=== PATIENT | male | born 1940 | race Caucasian/White ===

== ENCOUNTER → 2016-10-09 | Outpatient (CLI) | payer MEDICARE ==
[~2016-10-09] MED LIST: ALLO300T; AMLO10TA2; BENA40TA2; GABA300C10; METO25TA91; NABU750T; OMNIPAQUE 350 MG/ML, 100ML BOTTLE ONE; TIZA4CAP
== END | disposition home or self-care (01) ==
LOC: CFH 08:22
PROVIDERS: ATTEND Internal Medicine Cardiovascular Disease
DX: J84.10 Pulmonary fibrosis, unspecified (principal); K80.80 Other cholelithiasis without obstruction; I25.10 Atherosclerotic heart disease of native coronary artery without angina pectoris; M47.894 Other spondylosis, thoracic region; D73.4 Cyst of spleen; I08.3 Combined rheumatic disorders of mitral, aortic and tricuspid valves; I37.1 Nonrheumatic pulmonary valve insufficiency
CPT/HCPCS: 71275; 93306; Q9967

== ENCOUNTER → 2017-07-06 | Outpatient (CLI) | payer MEDICARE ==
[~2017-07-06] MED LIST changes: -OMNIPAQUE 350 MG/ML, 100ML BOTTLE ONE; +REGADENOSON 0.4 MG/5 ML SYRINGE ONE
== END | disposition home or self-care (01) ==
LOC: CFH 07:58
PROVIDERS: ATTEND Internal Medicine Cardiovascular Disease
DX: Z01.810 Encounter for preprocedural cardiovascular examination (principal); I11.9 Hypertensive heart disease without heart failure; I25.89 Other forms of chronic ischemic heart disease
CPT/HCPCS: 78452; 93017; A9502; J2785

== ENCOUNTER → 2017-07-28 | Outpatient (CLI) | payer MEDICARE ==
[~2017-07-28] MED LIST changes: -ALLO300T; +ALLO300T PO; +BENA10TA2 PO; +BENA20TA2 PO; -GABA300C10; +GABA300C10 PO; -METO25TA91; +METO25TA91 PO; -REGADENOSON 0.4 MG/5 ML SYRINGE ONE
[2017-07-28 11:43] LABS: BASOPHILS # (AUTO) 0.04 x10^3/uL (0-0.1); BASOPHILS % (AUTO) 1 % (0-1); EOSINOPHILS # (AUTO) 0.36 x10^3/uL (0-0.4); EOSINOPHILS % (AUTO) 5 % (1-7); LYMPHOCYTES % (AUTO) 34 % (22-44); MD NO; MEAN CORPUSCULAR HEMOGLOBIN 35.1 pg (27.5-34.5); MEAN CORPUSCULAR HGB CONC 34.6 g/dL (33.2-36.2); MEAN CORPUSCULAR VOLUME 101.4 fL (81-97); MEAN PLATELET VOLUME 6.6 fL (7.4-10.4); MONOCYTES # (AUTO) 0.67 x10^3/uL (0.2-0.8); MONOCYTES % (AUTO) 9 % (2-9); NEUTROPHILS # (AUTO) 3.73 x10^3/uL (1.8-6.8); NEUTROPHILS % (AUTO) 51 % (42-75); PLATELET COUNT 140 x10^3/uL (130-400); RED BLOOD COUNT 5.06 x10^6/uL (4.38-5.82); RED CELL DISTRIBUTION WIDTH 13.4 % (9.4-14.8)
[2017-07-28 11:55] LABS: ALBUMIN 3.8 g/dL (3.4-5.0); CHLORIDE 105 mmol/L (98-107)
[2017-07-28 12:01] LABS: ALANINE AMINOTRANSFERASE 69 U/L (12-78); ALKALINE PHOSPHATASE 67 U/L (45-117); ANION GAP 9 mmol/L (5-15); CREATININE 0.92 mg/dL (0.7-1.3); TOTAL PROTEIN 7.4 g/dL (6.4-8.2)
== END | disposition home or self-care (01) ==
LOC: STAR 10:45
PROVIDERS: ATTEND Orthopaedic Surgery
DX: Z01.818 Encounter for other preprocedural examination (principal); M16.12 Unilateral primary osteoarthritis, left hip; R94.31 Abnormal electrocardiogram [ECG] [EKG]
CPT/HCPCS: 36415; 80053; 85025; 93005

== ENCOUNTER 2018-01-31 02:27 | Inpatient (IN) | payer MEDICARE ==
[~2018-01-31] VITALS: Ht 182.9 cm; Wt 92.5 kg
[~2018-01-31 02:27] MED LIST changes: +ASPI-496 PO; -BENA10TA2 PO; +BENA10TA4 PO; -BENA20TA2 PO; +BENA20TA4 PO; -BENA40TA2; +BENA40TA3; +TRAM50TA2 PO
[2018-01-31] MEDS ORDERED: CYAN-10 PO (02:46)
[2018-01-31] MEDS ORDERED: CHOL100012 PO (02:46)
[2018-01-31 02:53] LABS: BASOPHILS # (AUTO) 0.02 x10^3/uL (0-0.1); BASOPHILS % (AUTO) 0 % (0-1); EOSINOPHILS % (AUTO) 6 % (1-7); LYMPHOCYTES % (AUTO) 30 % (22-44); MD NO; MEAN CORPUSCULAR HEMOGLOBIN 36.6 pg (27.5-34.5); MEAN CORPUSCULAR HGB CONC 34.9 g/dL (33.2-36.2); MEAN CORPUSCULAR VOLUME 104.8 fL (81-97); MEAN PLATELET VOLUME 7.2 fL (7.4-10.4); MONOCYTES # (AUTO) 0.42 x10^3/uL (0.2-0.8); MONOCYTES % (AUTO) 8 % (2-9); NEUTROPHILS # (AUTO) 2.74 x10^3/uL (1.8-6.8); NEUTROPHILS % (AUTO) 55 % (42-75); PLATELET COUNT 106 x10^3/uL (130-400); RED BLOOD COUNT 4.45 x10^6/uL (4.38-5.82); RED CELL DISTRIBUTION WIDTH 14.4 % (9.4-14.8)
[2018-01-31 03:02] LABS: ALANINE AMINOTRANSFERASE 32 U/L (12-78); ALBUMIN 3.4 g/dL (3.4-5.0); ANION GAP 9 mmol/L (5-15); CALCIUM 9.2 mg/dL (8.5-10.1); CHLORIDE 106 mmol/L (98-107); CREATININE 1.21 mg/dL (0.7-1.3)
[2018-01-31 03:06] LABS: ALKALINE PHOSPHATASE 68 U/L (45-117); BILIRUBIN,TOTAL 0.5 mg/dL (0.2-1.0); TOTAL PROTEIN 6.3 g/dL (6.4-8.2)
[2018-01-31 03:09] LABS: TROPONIN I 0.366 ng/mL (0.000-0.045)
[2018-01-31 03:54] VITALS: BP 167/92
[2018-01-31] MEDS ORDERED: POLYETHYLENE GLYCOL 17 GM PACKET PO PRN (04:30)
[2018-01-31] MEDS ORDERED: ONDANSETRON ODT 4 MG PO PRN (04:30)
[2018-01-31] MEDS ORDERED: HEPARIN 25,000 UNITS/500ML PMX 500 ML IV PRN (05:00)
[2018-01-31] MEDS ORDERED: HEPARIN 5,000 UNITS/ML, 1ML IV PRN (05:00)
[2018-01-31] MEDS ORDERED: HEPARIN 5,000 UNITS/ML, 1ML IV ONE (05:00)
[2018-01-31] MEDS: SODIUM CHLORIDE 0.9% 1,000 ML IV SCH ×2 (05:47→18:25)
[2018-01-31 06:30] VITALS: BP 108/88
[2018-01-31] MEDS: SENNA/DOCUSATE TABLET PO SCH (09:00)
[2018-01-31] MEDS: BENAZEPRIL 20 MG TABLET PO SCH (09:00)
[2018-01-31] MEDS ORDERED: BENAZEPRIL 10 MG TABLET ONE (09:23)
[2018-01-31] MEDS: ATORVASTATIN 80 MG TABLET PO SCH (09:26)
[2018-01-31] MEDS: GABAPENTIN 300 MG CAPSULE PO SCH ×3 (09:26→22:12)
[2018-01-31] MEDS: ALLOPURINOL 300 MG TABLET PO SCH (09:26)
[2018-01-31 13:08] VITALS: BP 165/71
[2018-01-31] MEDS ORDERED: FENTANYL PF 100 MCG/2ML ONE (14:31)
[2018-01-31] MEDS ORDERED: MIDAZOLAM 1 MG/ML, 5ML ONE (14:31)
[2018-01-31] MEDS ORDERED: TICAGRELOR 90 MG TABLET ONE (14:31)
[2018-01-31] MEDS ORDERED: HEPARIN 1,000 UNITS/ML, 10ML ONE (14:31)
[2018-01-31] MEDS ORDERED: VERAPAMIL 2.5 MG/ML, 2ML ONE (14:31)
[2018-01-31] MEDS ORDERED: BIVALIRUDIN 250 MG ONE (14:31)
[2018-01-31] MEDS ORDERED: LIDOCAINE-MPF 2% ,5ML ONE (14:31)
[2018-01-31] MEDS ORDERED: CHLORHEXIDINE 15 ML BOTTLE MM PRN (17:00)
[2018-01-31] MEDS ORDERED: METOPROLOL TARTRATE 25 MG TABLET PO ONE (17:00)
[2018-01-31] MEDS ORDERED: INSULIN LISPRO 100 UNITS/ML, PEN SQ-INSULIN SCH (17:00)
[2018-01-31 18:33] LABS: BASOPHILS # (AUTO) 0.05 x10^3/uL (0-0.1); BASOPHILS % (AUTO) 1 % (0-1); EOSINOPHILS # (AUTO) 0.21 x10^3/uL (0-0.4); EOSINOPHILS % (AUTO) 3 % (1-7); LYMPHOCYTES # (AUTO) 1.97 x10^3/uL (1-3.4); LYMPHOCYTES % (AUTO) 27 % (22-44); MD NO; MEAN CORPUSCULAR HEMOGLOBIN 36.6 pg (27.5-34.5); MEAN CORPUSCULAR HGB CONC 34.9 g/dL (33.2-36.2); MEAN CORPUSCULAR VOLUME 104.8 fL (81-97); MEAN PLATELET VOLUME 7.3 fL (7.4-10.4); MONOCYTES # (AUTO) 0.51 x10^3/uL (0.2-0.8); MONOCYTES % (AUTO) 7 % (2-9); NEUTROPHILS # (AUTO) 4.71 x10^3/uL (1.8-6.8); NEUTROPHILS % (AUTO) 63 % (42-75); PLATELET COUNT 113 x10^3/uL (130-400); RED BLOOD COUNT 4.68 x10^6/uL (4.38-5.82); RED CELL DISTRIBUTION WIDTH 14.6 % (9.4-14.8)
[2018-01-31 18:42] LABS: ALANINE AMINOTRANSFERASE 29 U/L (12-78); ALBUMIN 3.4 g/dL (3.4-5.0); ANION GAP 7 mmol/L (5-15); CALCIUM 8.9 mg/dL (8.5-10.1); CHLORIDE 109 mmol/L (98-107)
[2018-01-31 18:45] LABS: ALKALINE PHOSPHATASE 63 U/L (45-117); BILIRUBIN,TOTAL 1.1 mg/dL (0.2-1.0); INTERNATIONAL NORMALIZED RATIO 1.1 (0.93-1.1); PROTHROMBIN TIME 11.4 Seconds (9.6-11.5); TOTAL PROTEIN 6.3 g/dL (6.4-8.2)
[2018-01-31 18:45] LABS: MICROSCOPIC AUTO
[2018-01-31 18:54] LABS: HEMOGLOBIN A1C 4.8 % (4.2-6.3)
[2018-01-31 18:55] VITALS: BP 149/81
[2018-01-31] MEDS ORDERED: BENAZEPRIL 10 MG TABLET PO SCH (21:00)
[2018-01-31] MEDS: ASPIRIN 81 MG TABLET CHEW PO SCH (21:00)
[2018-01-31 22:11] VITALS: BP 148/73
[2018-01-31] MEDS: MUPIROCIN OINT 2%, 22GM TP SCH (22:13)
[2018-01-31] MEDS: SODIUM CHLORIDE FLUSH 10ML SYR IVF SCH (22:15)
[2018-02-01 00:09] VITALS: BP 160/79
[2018-02-01 03:05] LABS: CHOL/HDL RATIO 2.4; LDL/HDL RATIO 0.9 (0.5-3.0)
[2018-02-01 04:56] VITALS: BP_SYST 164; BP_SYST 167; BP_DIAS 72; BP_DIAS 74
[2018-02-01] MEDS ORDERED: METOPROLOL TARTRATE 25 MG TABLET PO SCH (05:00)
[2018-02-01 06:20] VITALS: BP 132/71
[2018-02-01] MEDS ORDERED: VANCOMYCIN 1,300 MG in SODIUM CHLORIDE 0.9% 250 ML IVPB PRN (07:30)
[2018-02-01] MEDS: GABAPENTIN 300 MG CAPSULE PO SCH ×3 (08:20→21:00)
[2018-02-01] MEDS: ALLOPURINOL 300 MG TABLET PO SCH (08:21)
[2018-02-01] MEDS: SENNA/DOCUSATE TABLET PO SCH (08:21)
[2018-02-01] MEDS ORDERED: BENAZEPRIL 10 MG TABLET ONE (08:22)
[2018-02-01] MEDS: ATORVASTATIN 80 MG TABLET PO SCH (08:29)
[2018-02-01] MEDS: SODIUM CHLORIDE FLUSH 10ML SYR IVF SCH ×3 (08:31→21:23)
[2018-02-01] MEDS: BENAZEPRIL 20 MG TABLET PO SCH (08:31)
[2018-02-01] MEDS: MUPIROCIN OINT 2%, 22GM TP SCH ×2 (08:33→21:00)
[2018-02-01] MEDS: SODIUM CHLORIDE 0.9% 1,000 ML IV SCH ×2 (08:33→22:20)
[2018-02-01] MEDS ORDERED: FENTANYL PF 250 MCG/5ML ONE ×4 (08:58→08:59)
[2018-02-01] MEDS ORDERED: MIDAZOLAM 10MG/2 ML ONE (08:58)
[2018-02-01] MEDS: DOCUSATE 100 MG CAPSULE PO SCH ×2 (09:00→21:00)
[2018-02-01 09:23] LABS: BASOPHILS # (AUTO) 0.01 x10^3/uL (0-0.1); BASOPHILS % (AUTO) 0 % (0-1); EOSINOPHILS # (AUTO) 0.15 x10^3/uL (0-0.4); EOSINOPHILS % (AUTO) 3 % (1-7); LYMPHOCYTES # (AUTO) 1.25 x10^3/uL (1-3.4); LYMPHOCYTES % (AUTO) 22 % (22-44); MD NO; MEAN CORPUSCULAR HEMOGLOBIN 35.8 pg (27.5-34.5); MEAN CORPUSCULAR HGB CONC 34.1 g/dL (33.2-36.2); MEAN PLATELET VOLUME 7.1 fL (7.4-10.4); MONOCYTES # (AUTO) 0.58 x10^3/uL (0.2-0.8); MONOCYTES % (AUTO) 10 % (2-9); NEUTROPHILS # (AUTO) 3.68 x10^3/uL (1.8-6.8); NEUTROPHILS % (AUTO) 65 % (42-75); PLATELET COUNT 110 x10^3/uL (130-400); RED BLOOD COUNT 4.37 x10^6/uL (4.38-5.82); RED CELL DISTRIBUTION WIDTH 14.5 % (9.4-14.8)
[2018-02-01 09:33] LABS: ANION GAP 7 mmol/L (5-15); CALCIUM 8.5 mg/dL (8.5-10.1); CHLORIDE 112 mmol/L (98-107)
[2018-02-01 09:35] LABS: CREATININE 0.94 mg/dL (0.7-1.3)
[2018-02-01 09:41] VITALS: BP 160/74
[2018-02-01] MEDS: METOPROLOL SUCCINATE 25 MG TAB.ER.24H PO SCH ×2 (09:46→21:00)
[2018-02-01] MEDS ORDERED: ALBUMIN HUMAN 5% 500 ML IV PRN (11:00)
[2018-02-01] MEDS ORDERED: EPINEPHRINE 2 MG in SODIUM CHLORIDE 0.9% 248 ML IV SCH ×2 (11:00→11:30)
[2018-02-01] MEDS ORDERED: CEFUROXIME 1.5 GM in SODIUM CHLORIDE 0.9% 50 ML IVPB PRN (11:00)
[2018-02-01] MEDS ORDERED: DEXMEDETOMIDINE 200 MCG in SODIUM CHLORIDE 0.9% 48 ML IV SCH (11:00)
[2018-02-01] MEDS ORDERED: PHENYLEPHRINE 10 MG in SODIUM CHLORIDE 0.9% 249 ML IV PRN ×2 (11:00→14:34)
[2018-02-01] MEDS ORDERED: REGULAR INSULIN 62.5 UNITS in SODIUM CHLORIDE 0.9% 249.375 ML IV PRN ×2 (11:00→14:34)
[2018-02-01] MEDS ORDERED: MANNITOL PMX 20% 500 ML IVPB PRN (11:00)
[2018-02-01] MEDS ORDERED: VANCOMYCIN 1,400 MG in SODIUM CHLORIDE 0.9% 250 ML IV PRN (11:00)
[2018-02-01] MEDS ORDERED: POTASSIUM CHLORIDE 80 MEQ, SODIUM BICARBONATE 8.4% 10 MEQ, MAGNESIUM SULFATE 0.5 GM, LI... IV PRN (11:00)
[2018-02-01] MEDS ORDERED: PAPAVERINE 30 MG/ML, 2ML ONE (11:12)
[2018-02-01] MEDS ORDERED: HEPARIN 1,000 UNITS/ML, 10ML ONE (11:13)
[2018-02-01] MEDS ORDERED: PROPOFOL 10 MG/ML, 20ML ONE (12:36)
[2018-02-01] MEDS ORDERED: ROCURONIUM 10MG/ML,5ML ONE (12:37)
[2018-02-01] MEDS ORDERED: HEPARIN 1,000 UNITS/ML, 10ML IV ONE (13:04)
[2018-02-01] MEDS ORDERED: PAPAVERINE 30 MG/ML, 2ML IV ONE (13:05)
[2018-02-01] MEDS ORDERED: PROTAMINE SULFATE 10 MG/ML, 25ML ONE ×2 (13:41)
[2018-02-01] MEDS ORDERED: DEXMEDETOMIDINE 200 MCG in SODIUM CHLORIDE 0.9% 48 ML IV PRN (14:34)
[2018-02-01] MEDS ORDERED: DOBUTAMINE 250 MG in SODIUM CHLORIDE 0.9% 230 ML IV PRN (14:34)
[2018-02-01] MEDS ORDERED: VASOPRESSIN 50 UNIT in SODIUM CHLORIDE 0.9% 247.5 ML IV PRN (14:34)
[2018-02-01] MEDS ORDERED: NITROGLYCERIN/D5W PMX 250 ML IV PRN (14:34)
[2018-02-01] MEDS ORDERED: SODIUM CHLORIDE 0.9% 1,000 ML IV PRN (14:34)
[2018-02-01] MEDS ORDERED: OXYcodone IR 5MG TABLET PO PRN (15:00)
[2018-02-01] MEDS ORDERED: MIDAZOLAM 1 MG/ML, 5ML IVPush PRN (15:00)
[2018-02-01] MEDS ORDERED: INSULIN REGULAR 100 UNITS/ML, 3ML VIAL IVPush PRN (15:00)
[2018-02-01] MEDS ORDERED: ACETAMINOPHEN 325 MG TABLET PO PRN (15:00)
[2018-02-01] MEDS ORDERED: SODIUM BICARB 8.4%, 50ML SYRINGE IV PRN (15:00)
[2018-02-01] MEDS ORDERED: BISACODYL 10 MG SUPP PR PRN (15:00)
[2018-02-01] MEDS ORDERED: PROCHLORPERAZINE 5 MG/ML, 2ML IVPush PRN (15:00)
[2018-02-01] MEDS ORDERED: BISACODYL 5 MG EC TABLET PO PRN (15:00)
[2018-02-01] MEDS ORDERED: DEXTROSE 4 GM TAB.CHEW PO PRN (15:00)
[2018-02-01] MEDS ORDERED: ACETAMINOPHEN 650 MG SUPP PR PRN (15:00)
[2018-02-01] MEDS ORDERED: EPINEPHRINE 2 MG in SODIUM CHLORIDE 0.9% 248 ML IV PRN (15:00)
[2018-02-01] MEDS ORDERED: LACTATED RINGERS 1,000 ML IV PRN (15:00)
[2018-02-01] MEDS ORDERED: DEXTROSE 50%, 50ML SYRINGE IVPush PRN (15:00)
[2018-02-01] MEDS ORDERED: MAGNESIUM SULFATE 1 GM in SODIUM CHLORIDE 0.9% 50 ML IVPB SCH (15:00)
[2018-02-01] MEDS: KSCALE TO 4.5 IV SCH ×2 (15:00→21:00)
[2018-02-01] MEDS ORDERED: GLUCAGON 1 MG IM PRN (15:00)
[2018-02-01 15:19] LABS: GLUCOSE BY BLOOD GAS ANALYZER 120 mg/dL (70-110); HEMOGLOBIN BY BLOOD GAS ANALYZ 11.9 g/dL (14.0-18.0)
[2018-02-01] MEDS ORDERED: POTASSIUM CHLORIDE 30 MEQ in SODIUM CHLORIDE 0.9% 100 ML IV ONE (15:30)
[2018-02-01] MEDS: INSULIN LISPRO 100 UNITS/ML, PEN SQ-INSULIN SCH ×2 (16:00→21:00)
[2018-02-01] MEDS ORDERED: MORPHINE SULFATE 4 MG/ML, 1ML ONE ×2 (16:17→22:47)
[2018-02-01] MEDS: morphine SULFATE 10 MG/ML, 1ML IVPush PRN ×2 (16:21→22:49)
[2018-02-01] MEDS: ASPIRIN 81 MG TABLET CHEW PO SCH (21:00)
[2018-02-01] MEDS: MUPIROCIN OINT 2%, 22GM NAS SCH (21:24)
[2018-02-01] MEDS: VANCOMYCIN 1,400 MG in SODIUM CHLORIDE 0.9% 250 ML IVPB SCH (23:04)
[2018-02-02] MEDS ORDERED: MORPHINE SULFATE 4 MG/ML, 1ML ONE (01:09)
[2018-02-02] MEDS: morphine SULFATE 10 MG/ML, 1ML IVPush PRN (01:12)
[2018-02-02] MEDS: KSCALE TO 4.5 IV SCH ×2 (03:00→09:00)
[2018-02-02 04:35] LABS: BASOPHILS # (AUTO) 0.01 x10^3/uL (0-0.1); BASOPHILS % (AUTO) 0 % (0-1); EOSINOPHILS % (AUTO) 0 % (1-7); LYMPHOCYTES # (AUTO) 0.37 x10^3/uL (1-3.4); LYMPHOCYTES % (AUTO) 6 % (22-44); MD NO; MEAN CORPUSCULAR HEMOGLOBIN 37.1 pg (27.5-34.5); MEAN CORPUSCULAR HGB CONC 35.1 g/dL (33.2-36.2); MEAN CORPUSCULAR VOLUME 105.7 fL (81-97); MEAN PLATELET VOLUME 8.2 fL (7.4-10.4); MONOCYTES # (AUTO) 0.59 x10^3/uL (0.2-0.8); MONOCYTES % (AUTO) 10 % (2-9); NEUTROPHILS # (AUTO) 5.03 x10^3/uL (1.8-6.8); NEUTROPHILS % (AUTO) 84 % (42-75); PLATELET COUNT 104 x10^3/uL (130-400); RED BLOOD COUNT 3.27 x10^6/uL (4.38-5.82); RED CELL DISTRIBUTION WIDTH 14.5 % (9.4-14.8)
[2018-02-02 04:45] LABS: ALBUMIN 2.9 g/dL (3.4-5.0); ANION GAP 5 mmol/L (5-15); CHLORIDE 116 mmol/L (98-107); CREATININE 0.92 mg/dL (0.7-1.3)
[2018-02-02 04:49] LABS: INTERNATIONAL NORMALIZED RATIO 1.16 (0.93-1.1)
[2018-02-02] MEDS: INSULIN LISPRO 100 UNITS/ML, PEN SQ-INSULIN SCH ×4 (07:00→21:00)
[2018-02-02] MEDS: ONDANSETRON 2MG/ML, 2ML IVPush PRN (07:34)
[2018-02-02] MEDS: HYDROcodone/APAP 5/325 TABLET PO PRN ×2 (07:42→13:10)
[2018-02-02] MEDS: METOPROLOL SUCCINATE 25 MG TAB.ER.24H PO SCH (08:32)
[2018-02-02] MEDS: SODIUM CHLORIDE FLUSH 10ML SYR IVF SCH ×3 (08:33→20:58)
[2018-02-02] MEDS: DOCUSATE 100 MG CAPSULE PO SCH ×2 (08:37→20:56)
[2018-02-02] MEDS: METOPROLOL TARTRATE 25 MG TABLET PO/NG SCH ×2 (08:37→20:56)
[2018-02-02] MEDS: GABAPENTIN 300 MG CAPSULE PO SCH ×3 (08:37→20:55)
[2018-02-02] MEDS: ALLOPURINOL 300 MG TABLET PO SCH (08:37)
[2018-02-02] MEDS: MUPIROCIN OINT 2%, 22GM TP SCH ×2 (08:38→20:58)
[2018-02-02] MEDS: SENNA/DOCUSATE TABLET PO SCH (08:39)
[2018-02-02] MEDS: MUPIROCIN OINT 2%, 22GM NAS SCH ×2 (08:39→20:58)
[2018-02-02] MEDS: ATORVASTATIN 80 MG TABLET PO SCH (08:44)
[2018-02-02] MEDS ORDERED: CHLORDIAZEPOXIDE 25 MG CAPSULE PO PRN (09:00)
[2018-02-02] MEDS ORDERED: MAGNESIUM HYDROXIDE 8%, 30ML UDC PO PRN (11:00)
[2018-02-02] MEDS: VANCOMYCIN 1,400 MG in SODIUM CHLORIDE 0.9% 250 ML IVPB SCH (11:07)
[2018-02-02] MEDS ORDERED: POTASSIUM CHLORIDE PMX 100 ML IV ONE (11:30)
[2018-02-02] MEDS: CHLORHEXIDINE 15 ML BOTTLE MM SCH (15:00)
[2018-02-02] MEDS ORDERED: BENAZEPRIL 10 MG TABLET ONE (15:27)
[2018-02-02] MEDS: MAGNESIUM SULFATE 1 GM in DEXTROSE 5% 100 ML IVPB SCH (15:30)
[2018-02-02] MEDS ORDERED: BENAZEPRIL 10 MG TABLET PO ONE (15:30)
[2018-02-02] MEDS: CHLORDIAZEPOXIDE 25 MG CAPSULE PO SCH ×2 (15:59→20:55)
[2018-02-02] MEDS: ASPIRIN 81 MG TABLET CHEW PO SCH (20:55)
[2018-02-03] MEDS: CHLORHEXIDINE 15 ML BOTTLE MM SCH ×2 (03:00→15:00)
[2018-02-03 04:55] LABS: MEAN CORPUSCULAR HEMOGLOBIN 36.5 pg (27.5-34.5); MEAN CORPUSCULAR HGB CONC 34.3 g/dL (33.2-36.2); MEAN CORPUSCULAR VOLUME 106.4 fL (81-97); RED BLOOD COUNT 3.33 x10^6/uL (4.38-5.82); RED CELL DISTRIBUTION WIDTH 14.9 % (9.4-14.8)
[2018-02-03 05:07] LABS: ANION GAP 6 mmol/L (5-15); CALCIUM 7.9 mg/dL (8.5-10.1); CHLORIDE 113 mmol/L (98-107); CREATININE 0.73 mg/dL (0.7-1.3)
[2018-02-03 05:15] LABS: BASOPHILS # (AUTO) 0.03 x10^3/uL (0-0.1); BASOPHILS % (AUTO) 0 % (0-1); EOSINOPHILS # (AUTO) 0.15 x10^3/uL (0-0.4); EOSINOPHILS % (AUTO) 2 % (1-7); INTERNATIONAL NORMALIZED RATIO 1.16 (0.93-1.1); LYMPHOCYTES % (AUTO) 13 % (22-44); MD SCAN; MEAN PLATELET VOLUME 7.7 fL (7.4-10.4); MONOCYTES # (AUTO) 0.94 x10^3/uL (0.2-0.8); MONOCYTES % (AUTO) 11 % (2-9); NEUTROPHILS # (AUTO) 6.43 x10^3/uL (1.8-6.8); NEUTROPHILS % (AUTO) 74 % (42-75); PLATELET COUNT 99 x10^3/uL (130-400)
[2018-02-03] MEDS: ONDANSETRON 2MG/ML, 2ML IVPush PRN (06:35)
[2018-02-03] MEDS: INSULIN LISPRO 100 UNITS/ML, PEN SQ-INSULIN SCH ×4 (07:00→20:37)
[2018-02-03 08:48] LABS: FOLATE LEVEL > 20.0 ng/mL (3.1-17.5)
[2018-02-03] MEDS ORDERED: BENAZEPRIL 10 MG TABLET PO SCH (09:00)
[2018-02-03] MEDS: SENNA/DOCUSATE TABLET PO SCH (09:00)
[2018-02-03] MEDS ORDERED: FUROSEMIDE 20 MG/2 ML IV SCH (09:00)
[2018-02-03] MEDS: ENOXAPARIN 40 MG/0.4 ML SQ SCH (09:00)
[2018-02-03] MEDS: ATORVASTATIN 80 MG TABLET PO SCH (09:03)
[2018-02-03] MEDS: DOCUSATE 100 MG CAPSULE PO SCH ×2 (09:04→20:38)
[2018-02-03] MEDS: CHLORDIAZEPOXIDE 25 MG CAPSULE PO SCH ×2 (09:04→20:38)
[2018-02-03] MEDS: ALLOPURINOL 300 MG TABLET PO SCH (09:04)
[2018-02-03] MEDS: METOPROLOL TARTRATE 25 MG TABLET PO/NG SCH ×2 (09:04→20:39)
[2018-02-03] MEDS: POTASSIUM CHLORIDE 10 MEQ TABLET.ER PO SCH (09:04)
[2018-02-03] MEDS: BENAZEPRIL 20 MG TABLET PO SCH ×2 (09:05→20:38)
[2018-02-03] MEDS: GABAPENTIN 300 MG CAPSULE PO SCH ×3 (09:05→20:38)
[2018-02-03] MEDS: MUPIROCIN OINT 2%, 22GM NAS SCH ×2 (09:11→20:37)
[2018-02-03] MEDS: SODIUM CHLORIDE FLUSH 10ML SYR IVF SCH ×2 (09:11→20:39)
[2018-02-03 10:12] VITALS: BP 166/73
[2018-02-03 14:34] VITALS: BP 120/67
[2018-02-03] MEDS: MAGNESIUM SULFATE 1 GM in DEXTROSE 5% 100 ML IVPB SCH (16:38)
[2018-02-03] MEDS ORDERED: FILTER 0.22 MICRON IV PRN (17:30)
[2018-02-03 18:00] VITALS: BP 115/62
[2018-02-03] MEDS ORDERED: AMIODARONE 150 MG in DEXTROSE 5% 100 ML IV ONE (18:00)
[2018-02-03] MEDS ORDERED: AMIODARONE 900 MG in DEXTROSE 5% 482 ML IV PRN (18:00)
[2018-02-03] MEDS ORDERED: BENAZEPRIL 10 MG TABLET ONE (20:24)
[2018-02-03] MEDS: ASPIRIN 81 MG TABLET CHEW PO SCH (20:39)
[2018-02-04 00:12] VITALS: BP 104/59
[2018-02-04 04:36] LABS: ANION GAP 6 mmol/L (5-15); CHLORIDE 110 mmol/L (98-107); CREATININE 0.87 mg/dL (0.7-1.3)
[2018-02-04 04:44] LABS: BASOPHILS # (AUTO) 0.02 x10^3/uL (0-0.1); BASOPHILS % (AUTO) 0 % (0-1); EOSINOPHILS # (AUTO) 0.27 x10^3/uL (0-0.4); EOSINOPHILS % (AUTO) 3 % (1-7); LYMPHOCYTES # (AUTO) 1.29 x10^3/uL (1-3.4); LYMPHOCYTES % (AUTO) 16 % (22-44); MD NO; MEAN CORPUSCULAR HEMOGLOBIN 35.5 pg (27.5-34.5); MEAN CORPUSCULAR HGB CONC 33.4 g/dL (33.2-36.2); MEAN CORPUSCULAR VOLUME 106.3 fL (81-97); MEAN PLATELET VOLUME 7.9 fL (7.4-10.4); MONOCYTES # (AUTO) 0.84 x10^3/uL (0.2-0.8); MONOCYTES % (AUTO) 10 % (2-9); NEUTROPHILS # (AUTO) 5.62 x10^3/uL (1.8-6.8); NEUTROPHILS % (AUTO) 70 % (42-75); PLATELET COUNT 107 x10^3/uL (130-400); RED CELL DISTRIBUTION WIDTH 14.6 % (9.4-14.8)
[2018-02-04] MEDS: CHLORHEXIDINE 15 ML BOTTLE MM SCH (04:55)
[2018-02-04] MEDS: INSULIN LISPRO 100 UNITS/ML, PEN SQ-INSULIN SCH ×2 (07:00→11:00)
[2018-02-04] MEDS: POTASSIUM CHLORIDE 10 MEQ TABLET.ER PO SCH ×3 (08:00→21:10)
[2018-02-04] MEDS: ENOXAPARIN 40 MG/0.4 ML SQ SCH (08:34)
[2018-02-04 08:40] VITALS: BP 124/68
[2018-02-04] MEDS ORDERED: BENAZEPRIL 10 MG TABLET ONE (08:41)
[2018-02-04] MEDS: DOCUSATE 100 MG CAPSULE PO SCH ×2 (08:48→21:09)
[2018-02-04] MEDS: GABAPENTIN 300 MG CAPSULE PO SCH ×3 (08:48→21:10)
[2018-02-04] MEDS: SENNA/DOCUSATE TABLET PO SCH (08:48)
[2018-02-04] MEDS: ALLOPURINOL 300 MG TABLET PO SCH (08:49)
[2018-02-04] MEDS: CLOPIDOGREL 75 MG TABLET PO SCH (08:49)
[2018-02-04] MEDS: METOPROLOL TARTRATE 25 MG TABLET PO/NG SCH ×2 (08:49→21:10)
[2018-02-04] MEDS: BENAZEPRIL 20 MG TABLET PO SCH ×2 (08:49→21:10)
[2018-02-04] MEDS: SODIUM CHLORIDE FLUSH 10ML SYR IVF SCH ×2 (08:50→21:03)
[2018-02-04] MEDS: MUPIROCIN OINT 2%, 22GM NAS SCH ×2 (08:56→21:00)
[2018-02-04] MEDS: FUROSEMIDE 20 MG/2 ML IV SCH ×2 (08:59→21:03)
[2018-02-04] MEDS ORDERED: CHLORDIAZEPOXIDE 25 MG CAPSULE PO SCH (09:00)
[2018-02-04] MEDS: AMIODARONE 200 MG TABLET PO SCH ×2 (09:01→21:09)
[2018-02-04 13:36] VITALS: BP 117/82
[2018-02-04] MEDS ORDERED: LIDOCAINE-MPF 2%, 2ML ONE (13:44)
[2018-02-04] MEDS: METOCLOPRAMIDE 5 MG/ML, 2ML IVPush SCH ×2 (14:02→21:00)
[2018-02-04 19:57] VITALS: BP 131/74
[2018-02-04] MEDS: ASPIRIN 81 MG TABLET CHEW PO SCH (21:09)
[2018-02-04] MEDS: ATORVASTATIN 80 MG TABLET PO SCH (21:10)
[2018-02-05 01:41] VITALS: BP 133/61
[2018-02-05] MEDS: METOCLOPRAMIDE 5 MG/ML, 2ML IVPush SCH ×4 (03:59→23:24)
[2018-02-05 04:33] LABS: BASOPHILS # (AUTO) 0.04 x10^3/uL (0-0.1); BASOPHILS % (AUTO) 1 % (0-1); EOSINOPHILS # (AUTO) 0.36 x10^3/uL (0-0.4); EOSINOPHILS % (AUTO) 6 % (1-7); LYMPHOCYTES # (AUTO) 1.07 x10^3/uL (1-3.4); LYMPHOCYTES % (AUTO) 17 % (22-44); MD NO; MEAN CORPUSCULAR HEMOGLOBIN 36.7 pg (27.5-34.5); MEAN CORPUSCULAR HGB CONC 34.7 g/dL (33.2-36.2); MEAN CORPUSCULAR VOLUME 105.6 fL (81-97); MEAN PLATELET VOLUME 7.6 fL (7.4-10.4); MONOCYTES # (AUTO) 0.76 x10^3/uL (0.2-0.8); MONOCYTES % (AUTO) 12 % (2-9); NEUTROPHILS # (AUTO) 4.26 x10^3/uL (1.8-6.8); NEUTROPHILS % (AUTO) 66 % (42-75); PLATELET COUNT 115 x10^3/uL (130-400); RED BLOOD COUNT 2.96 x10^6/uL (4.38-5.82)
[2018-02-05 04:41] LABS: ANION GAP 5 mmol/L (5-15); CALCIUM 8.1 mg/dL (8.5-10.1); CHLORIDE 108 mmol/L (98-107); CREATININE 0.82 mg/dL (0.7-1.3)
[2018-02-05 08:05] VITALS: BP 145/77
[2018-02-05] MEDS ORDERED: BENAZEPRIL 10 MG TABLET ONE (08:07)
[2018-02-05] MEDS: ALLOPURINOL 300 MG TABLET PO SCH (08:13)
[2018-02-05] MEDS: GABAPENTIN 300 MG CAPSULE PO SCH ×3 (08:13→20:57)
[2018-02-05] MEDS: AMIODARONE 200 MG TABLET PO SCH ×2 (08:13→20:56)
[2018-02-05] MEDS: CLOPIDOGREL 75 MG TABLET PO SCH (08:13)
[2018-02-05] MEDS: METOPROLOL TARTRATE 25 MG TABLET PO/NG SCH ×2 (08:14→20:56)
[2018-02-05] MEDS: ATORVASTATIN 80 MG TABLET PO SCH (08:14)
[2018-02-05] MEDS: DOCUSATE 100 MG CAPSULE PO SCH ×2 (08:14→20:57)
[2018-02-05] MEDS: SENNA/DOCUSATE TABLET PO SCH (08:14)
[2018-02-05] MEDS: POTASSIUM CHLORIDE 10 MEQ TABLET.ER PO SCH ×2 (08:15→20:57)
[2018-02-05] MEDS: FUROSEMIDE 20 MG/2 ML IV SCH ×2 (08:15→20:57)
[2018-02-05] MEDS: ENOXAPARIN 40 MG/0.4 ML SQ SCH (08:16)
[2018-02-05] MEDS: BENAZEPRIL 20 MG TABLET PO SCH ×2 (08:23→20:55)
[2018-02-05] MEDS: MUPIROCIN OINT 2%, 22GM NAS SCH ×2 (08:24→20:57)
[2018-02-05] MEDS: SODIUM CHLORIDE FLUSH 10ML SYR IVF SCH ×2 (08:24→20:58)
[2018-02-05] MEDS: POLYETHYLENE GLYCOL 17 GM PACKET PO SCH (09:00)
[2018-02-05 13:24] VITALS: BP 108/57
[2018-02-05 19:51] VITALS: BP 144/72
[2018-02-05] MEDS: ASPIRIN 81 MG TABLET CHEW PO SCH (20:56)
[2018-02-05 21:20] VITALS: BP 151/64
[2018-02-05 23:18] VITALS: BP 93/47
[2018-02-06 01:42] VITALS: BP 101/62
[2018-02-06 05:09] LABS: BASOPHILS # (AUTO) 0.05 x10^3/uL (0-0.1); BASOPHILS % (AUTO) 1 % (0-1); EOSINOPHILS # (AUTO) 0.25 x10^3/uL (0-0.4); EOSINOPHILS % (AUTO) 5 % (1-7); LYMPHOCYTES # (AUTO) 1.35 x10^3/uL (1-3.4); LYMPHOCYTES % (AUTO) 24 % (22-44); MD NO; MEAN CORPUSCULAR HEMOGLOBIN 36.7 pg (27.5-34.5); MEAN CORPUSCULAR HGB CONC 34.7 g/dL (33.2-36.2); MEAN CORPUSCULAR VOLUME 105.8 fL (81-97); MEAN PLATELET VOLUME 7.5 fL (7.4-10.4); MONOCYTES # (AUTO) 0.74 x10^3/uL (0.2-0.8); MONOCYTES % (AUTO) 13 % (2-9); NEUTROPHILS # (AUTO) 3.29 x10^3/uL (1.8-6.8); NEUTROPHILS % (AUTO) 58 % (42-75); PLATELET COUNT 132 x10^3/uL (130-400); RED BLOOD COUNT 2.85 x10^6/uL (4.38-5.82); RED CELL DISTRIBUTION WIDTH 14.1 % (9.4-14.8)
[2018-02-06 05:16] LABS: CHLORIDE 107 mmol/L (98-107)
[2018-02-06 05:24] LABS: ANION GAP 7 mmol/L (5-15); CALCIUM 8.3 mg/dL (8.5-10.1); CREATININE 0.98 mg/dL (0.7-1.3)
[2018-02-06] MEDS: METOCLOPRAMIDE 5 MG/ML, 2ML IVPush SCH (05:57)
[2018-02-06 07:58] VITALS: BP 132/71
[2018-02-06] MEDS ORDERED: POTASSIUM CHLORIDE 20 MEQ TAB.ER.PRT PO ONE ×2 (08:00→09:00)
[2018-02-06] MEDS ORDERED: BENAZEPRIL 10 MG TABLET ONE (08:27)
[2018-02-06] MEDS: ENOXAPARIN 40 MG/0.4 ML SQ SCH (08:40)
[2018-02-06] MEDS: ATORVASTATIN 80 MG TABLET PO SCH (08:41)
[2018-02-06] MEDS: DOCUSATE 100 MG CAPSULE PO SCH ×2 (08:41→20:30)
[2018-02-06] MEDS: CLOPIDOGREL 75 MG TABLET PO SCH (08:41)
[2018-02-06] MEDS: FUROSEMIDE 20 MG/2 ML IV SCH ×2 (08:41→20:29)
[2018-02-06] MEDS: SENNA/DOCUSATE TABLET PO SCH (08:41)
[2018-02-06] MEDS: METOPROLOL TARTRATE 25 MG TABLET PO/NG SCH ×2 (08:42→20:29)
[2018-02-06] MEDS: ALLOPURINOL 300 MG TABLET PO SCH (08:42)
[2018-02-06] MEDS: AMIODARONE 200 MG TABLET PO SCH ×4 (08:42→20:28)
[2018-02-06] MEDS: BENAZEPRIL 20 MG TABLET PO SCH ×2 (08:43→20:28)
[2018-02-06] MEDS: POTASSIUM CHLORIDE 10 MEQ TABLET.ER PO SCH ×2 (08:43→20:29)
[2018-02-06] MEDS: GABAPENTIN 300 MG CAPSULE PO SCH ×3 (08:44→20:29)
[2018-02-06] MEDS: POLYETHYLENE GLYCOL 17 GM PACKET PO SCH (08:44)
[2018-02-06] MEDS: SODIUM CHLORIDE FLUSH 10ML SYR IVF SCH ×2 (08:45→20:30)
[2018-02-06] MEDS ORDERED: AMIODARONE 50 MG/ML, 3ML IVPush ONE (10:30)
[2018-02-06] MEDS ORDERED: FILTER 0.22 MICRON IV ONE (10:30)
[2018-02-06] MEDS ORDERED: AMIODARONE 150 MG in DEXTROSE 5% 100 ML IV ONE (10:30)
[2018-02-06] MEDS: MUPIROCIN OINT 2%, 22GM NAS SCH (10:59)
[2018-02-06 15:55] VITALS: BP 119/69
[2018-02-06 20:04] VITALS: BP 117/65
[2018-02-06] MEDS: ASPIRIN 81 MG TABLET CHEW PO SCH (20:28)
[2018-02-07 01:15] VITALS: BP 125/65
[2018-02-07 04:53] LABS: ANION GAP 7 mmol/L (5-15); CALCIUM 8.5 mg/dL (8.5-10.1); CHLORIDE 106 mmol/L (98-107); CREATININE 1.02 mg/dL (0.7-1.3)
[2018-02-07 07:28] VITALS: BP 163/72
[2018-02-07 07:29] VITALS: BP 147/72
[2018-02-07] MEDS: POLYETHYLENE GLYCOL 17 GM PACKET PO SCH ×2 (09:00→10:26)
[2018-02-07] MEDS: ACETAMINOPHEN 325 MG TABLET PO PRN (10:26)
[2018-02-07] MEDS: FUROSEMIDE 20 MG/2 ML IV SCH ×2 (10:26→22:03)
[2018-02-07] MEDS: SODIUM CHLORIDE FLUSH 10ML SYR IVF SCH ×2 (10:26→22:04)
[2018-02-07] MEDS: SENNA/DOCUSATE TABLET PO SCH (10:27)
[2018-02-07] MEDS: BENAZEPRIL 20 MG TABLET PO SCH ×2 (10:27→22:03)
[2018-02-07] MEDS: POTASSIUM CHLORIDE 10 MEQ TABLET.ER PO SCH ×2 (10:27→22:02)
[2018-02-07] MEDS: ALLOPURINOL 300 MG TABLET PO SCH (10:27)
[2018-02-07] MEDS: CLOPIDOGREL 75 MG TABLET PO SCH (10:27)
[2018-02-07] MEDS: METOPROLOL TARTRATE 25 MG TABLET PO/NG SCH ×2 (10:27→22:03)
[2018-02-07] MEDS: DOCUSATE 100 MG CAPSULE PO SCH (10:28)
[2018-02-07] MEDS: GABAPENTIN 300 MG CAPSULE PO SCH ×3 (10:28→22:03)
[2018-02-07] MEDS: ENOXAPARIN 40 MG/0.4 ML SQ SCH (10:28)
[2018-02-07] MEDS: AMIODARONE 200 MG TABLET PO SCH ×3 (10:28→22:02)
[2018-02-07 13:07] VITALS: BP 105/62
[2018-02-07 21:36] VITALS: BP 150/65
[2018-02-07] MEDS: ATORVASTATIN 80 MG TABLET PO SCH (22:02)
[2018-02-07] MEDS: ASPIRIN 81 MG TABLET CHEW PO SCH (22:03)
[2018-02-08 01:06] VITALS: BP 116/87
[2018-02-08 05:08] LABS: CALCIUM 8.8 mg/dL (8.5-10.1); CHLORIDE 107 mmol/L (98-107)
[2018-02-08 05:11] LABS: ANION GAP 8 mmol/L (5-15); CREATININE 0.91 mg/dL (0.7-1.3)
[2018-02-08] MEDS: SENNA/DOCUSATE TABLET PO SCH (07:24)
[2018-02-08] MEDS: POLYETHYLENE GLYCOL 17 GM PACKET PO SCH (07:24)
[2018-02-08] MEDS: POTASSIUM CHLORIDE 10 MEQ TABLET.ER PO SCH ×2 (08:59→20:32)
[2018-02-08] MEDS: AMIODARONE 200 MG TABLET PO SCH ×3 (08:59→20:30)
[2018-02-08] MEDS: SODIUM CHLORIDE FLUSH 10ML SYR IVF SCH ×2 (08:59→20:35)
[2018-02-08] MEDS: ENOXAPARIN 40 MG/0.4 ML SQ SCH (08:59)
[2018-02-08] MEDS: FUROSEMIDE 20 MG/2 ML IV SCH ×2 (08:59→20:32)
[2018-02-08] MEDS: CLOPIDOGREL 75 MG TABLET PO SCH (08:59)
[2018-02-08] MEDS: ACETAMINOPHEN 325 MG TABLET PO PRN (09:00)
[2018-02-08] MEDS: ALLOPURINOL 300 MG TABLET PO SCH (09:00)
[2018-02-08] MEDS ORDERED: DOCUSATE 100 MG CAPSULE PO SCH (09:00)
[2018-02-08] MEDS: METOPROLOL TARTRATE 25 MG TABLET PO/NG SCH ×2 (09:00→21:56)
[2018-02-08] MEDS: GABAPENTIN 300 MG CAPSULE PO SCH ×3 (09:00→20:32)
[2018-02-08] MEDS: BENAZEPRIL 20 MG TABLET PO SCH ×2 (09:03→20:31)
[2018-02-08 09:20] VITALS: BP 102/66
[2018-02-08] MEDS ORDERED: AMIODARONE 50 MG/ML, 3ML IVPush ONE ×2 (10:30→11:00)
[2018-02-08] MEDS ORDERED: AMIODARONE 150 MG in DEXTROSE 5% 100 ML IV ONE (11:00)
[2018-02-08] MEDS ORDERED: FILTER 0.22 MICRON IV ONE (11:00)
[2018-02-08 16:10] VITALS: BP 97/53
[2018-02-08 20:24] VITALS: BP 115/52
[2018-02-08] MEDS: ATORVASTATIN 80 MG TABLET PO SCH (20:32)
[2018-02-08] MEDS: ASPIRIN 81 MG TABLET CHEW PO SCH (20:32)
[2018-02-08 21:54] VITALS: BP 107/54
[2018-02-09 00:41] VITALS: BP 95/55
[2018-02-09 00:45] VITALS: BP 106/63
[2018-02-09 05:10] LABS: CHLORIDE 107 mmol/L (98-107)
[2018-02-09 05:16] LABS: ANION GAP 9 mmol/L (5-15); CALCIUM 9.1 mg/dL (8.5-10.1); CREATININE 1.03 mg/dL (0.7-1.3)
[2018-02-09 07:05] VITALS: BP 115/58
[2018-02-09] MEDS ORDERED: BENAZEPRIL 10 MG TABLET ONE (08:42)
[2018-02-09] MEDS: FUROSEMIDE 20 MG/2 ML IV SCH (08:48)
[2018-02-09] MEDS: ATORVASTATIN 80 MG TABLET PO SCH (08:49)
[2018-02-09] MEDS: CLOPIDOGREL 75 MG TABLET PO SCH (08:49)
[2018-02-09] MEDS: ALLOPURINOL 300 MG TABLET PO SCH (08:49)
[2018-02-09] MEDS: GABAPENTIN 300 MG CAPSULE PO SCH (08:49)
[2018-02-09] MEDS: AMIODARONE 200 MG TABLET PO SCH (08:50)
[2018-02-09] MEDS: METOPROLOL TARTRATE 25 MG TABLET PO/NG SCH (08:50)
[2018-02-09] MEDS: POTASSIUM CHLORIDE 10 MEQ TABLET.ER PO SCH (08:50)
[2018-02-09] MEDS: BENAZEPRIL 20 MG TABLET PO SCH (08:50)
[2018-02-09] MEDS: ENOXAPARIN 40 MG/0.4 ML SQ SCH (08:51)
[2018-02-09] MEDS: SENNA/DOCUSATE TABLET PO SCH (08:51)
[2018-02-09 13:05] VITALS: BP 120/64
[2018-02-09] MEDS ORDERED: AMIO200T42 PO (13:14)
[2018-02-09] MEDS ORDERED: SENN1TAB7 PO (13:14)
[2018-02-09] MEDS ORDERED: FURO20TA3 PO (13:14)
[2018-02-09] MEDS ORDERED: METO25TA35 PO/NG (13:14)
[2018-02-09] MEDS ORDERED: ATOR-2 PO (13:14)
[2018-02-09] MEDS ORDERED: CLOP75TA PO (13:14)
[2018-02-09] MEDS ORDERED: POLY17PO5 PO (13:14)
[2018-02-09] MEDS ORDERED: ONDA4TAB13 PO (13:14)
[2018-02-09] MEDS ORDERED: AMIODARONE 200 MG TABLET PO SCH (21:00)
== END 2018-02-09 16:05 | DRG 233 ==
LOC: ED 03:24 → EDIP 03:30 → 5SO 03:46 → CSU 02-01 11:32 → 5SO 02-03 09:49
PROVIDERS: ADMIT Family Medicine; ATTEND Family Medicine
PROC: 4A023N7 Measurement of Cardiac Sampling and Pressure, Left Heart, Percutaneous Approach (ICD-10-PCS; principal; 2018-01-31)
PROC: B2111ZZ Fluoroscopy of Multiple Coronary Arteries using Low Osmolar Contrast (ICD-10-PCS; 2018-01-31)
PROC: B2151ZZ Fluoroscopy of Left Heart using Low Osmolar Contrast (ICD-10-PCS; 2018-01-31)
PROC: B3101ZZ Fluoroscopy of Thoracic Aorta using Low Osmolar Contrast (ICD-10-PCS; 2018-01-31)
PROC: 02100Z9 Bypass Coronary Artery, One Artery from Left Internal Mammary, Open Approach (ICD-10-PCS; 2018-02-01)
PROC: 06BP4ZZ Excision of Right Saphenous Vein, Percutaneous Endoscopic Approach (ICD-10-PCS; 2018-02-01)
PROC: 5A1221Z Performance of Cardiac Output, Continuous (ICD-10-PCS; 2018-02-01)
PROC: 30233R1 Transfusion of Nonautologous Platelets into Peripheral Vein, Percutaneous Approach (ICD-10-PCS; 2018-02-01)
PROC: B24BZZ4 Ultrasonography of Heart with Aorta, Transesophageal (ICD-10-PCS; 2018-02-01)
DX: I21.4 Non-ST elevation (NSTEMI) myocardial infarction (principal); J96.00 Acute respiratory failure, unspecified whether with hypoxia or hypercapnia; I50.21 Acute systolic (congestive) heart failure; F10.239 Alcohol dependence with withdrawal, unspecified; M10.9 Gout, unspecified; I11.0 Hypertensive heart disease with heart failure; N40.0 Benign prostatic hyperplasia without lower urinary tract symptoms; Z96.642 Presence of left artificial hip joint; Z90.49 Acquired absence of other specified parts of digestive tract; I25.84 Coronary atherosclerosis due to calcified coronary lesion; F17.210 Nicotine dependence, cigarettes, uncomplicated; Z80.8 Family history of malignant neoplasm of other organs or systems; Z83.3 Family history of diabetes mellitus; Z82.49 Family history of ischemic heart disease and other diseases of the circulatory system; I25.119 Atherosclerotic heart disease of native coronary artery with unspecified angina pectoris; D53.9 Nutritional anemia, unspecified; E78.00 Pure hypercholesterolemia, unspecified; E78.5 Hyperlipidemia, unspecified; G89.4 Chronic pain syndrome; I44.7 Left bundle-branch block, unspecified; Z79.899 Other long term (current) drug therapy; Z79.82 Long term (current) use of aspirin; Z96.652 Presence of left artificial knee joint; I25.5 Ischemic cardiomyopathy
CPT/HCPCS: 32555; 36415; 36430; 36600; 71045; 71048; 80048; 80053; 80061; 81001; 82040; 82330; 82607; 82746; 82800; 82803; 82810; 82947; 82962; 83036; 83735; 83880; 84132; 84295; 84484; 85014; 85018; 85025; 85049; 85347; 85520; 85610; 85730; 86850; 86900; 86923; 87081; 93005; 93306; 93312; 93321; 93325; 93458; 93880; 93970; 94002; 94003; 99156; 99157; 99285; C1760; C1769; C1894; J0583; J0697; J1644; J1650; J1815; J2250; J2405; J2704; J2720; J3010; J3370; J3475; J3480; J3490; P9045; C1751; J0171; J0282; J1940; J2270; J2370; J2440; J2765; J7030; J7050; J7060; P9035; Q9967

== ENCOUNTER 2018-03-19 04:48 | Inpatient (IN) | payer MEDICARE ==
[~2018-03-19] VITALS: Ht 182.9 cm; Wt 86.8 kg
[~2018-03-19 04:48] MED LIST changes: +AMIO200T42 PO; -AMLO10TA2; +AMLO10TA6; +ATOR-2 PO; +CHOL100012 PO; +CLOP75TA PO; +CYAN-10 PO; +FURO20TA3 PO; +METO25TA35 PO/NG; +ONDA4TAB13 PO; +POLY17PO5 PO; +SENN1TAB8 PO
[2018-03-19] MEDS ORDERED: ACETAMINOPHEN 500 MG TABLET ONE (05:15)
[2018-03-19] MEDS ORDERED: ACETAMINOPHEN 500 MG TABLET PO ONE (05:30)
[2018-03-19] MEDS ORDERED: SODIUM CHLORIDE FLUSH 10ML SYR IVF ONE (05:30)
[2018-03-19] MEDS ORDERED: SODIUM CHLORIDE 0.9% 1,000ML IVBOLUS ONE (05:30)
[2018-03-19 05:45] LABS: CULTURE INDICATED? YES; MICROSCOPIC INDICATED
[2018-03-19 05:55] LABS: BASOPHILS # (AUTO) 0.01 x10^3/uL (0-0.1); BASOPHILS % (AUTO) 0 % (0-1); EOSINOPHILS # (AUTO) 0.03 x10^3/uL (0-0.4); EOSINOPHILS % (AUTO) 1 % (1-7); LYMPHOCYTES # (AUTO) 0.35 x10^3/uL (1-3.4); LYMPHOCYTES % (AUTO) 5 % (22-44); MD NO; MEAN CORPUSCULAR HEMOGLOBIN 33.1 pg (27.5-34.5); MEAN CORPUSCULAR HGB CONC 33.6 g/dL (33.2-36.2); MEAN CORPUSCULAR VOLUME 98.5 fL (81-97); MEAN PLATELET VOLUME 7.9 fL (7.4-10.4); MONOCYTES # (AUTO) 0.56 x10^3/uL (0.2-0.8); MONOCYTES % (AUTO) 8 % (2-9); NEUTROPHILS % (AUTO) 87 % (42-75); PLATELET COUNT 165 x10^3/uL (130-400); RED BLOOD COUNT 3.36 x10^6/uL (4.38-5.82); RED CELL DISTRIBUTION WIDTH 14.6 % (9.4-14.8)
[2018-03-19 06:05] LABS: ALANINE AMINOTRANSFERASE 37 U/L (12-78); ALBUMIN 2.7 g/dL (3.4-5.0); ANION GAP 8 mmol/L (5-15); CALCIUM 8.6 mg/dL (8.5-10.1); CHLORIDE 111 mmol/L (98-107); CREATININE 1.17 mg/dL (0.7-1.3)
[2018-03-19 06:07] LABS: ALKALINE PHOSPHATASE 89 U/L (45-117); BILIRUBIN,TOTAL 1.2 mg/dL (0.2-1.0); TOTAL PROTEIN 6.2 g/dL (6.4-8.2)
[2018-03-19] MEDS ORDERED: METO25TA35 PO (06:24)
[2018-03-19] MEDS ORDERED: CEFTRIAXONE 1,000 MG in SODIUM CHLORIDE 0.9% 50 ML IV ONE (06:30)
[2018-03-19] MEDS ORDERED: CEFTRIAXONE PMX 1GM/50ML 50 ML ONE (06:32)
[2018-03-19 07:14] LABS: TROPONIN I 0.227 ng/mL (0.000-0.045)
[2018-03-19] MEDS ORDERED: ACETAMINOPHEN 325 MG TABLET PO PRN (07:30)
[2018-03-19] MEDS ORDERED: POTASSIUM CHLORIDE 20 MEQ in LACTATED RINGERS 1,000 ML IV SCH (07:30)
[2018-03-19] MEDS ORDERED: ENALAPRILAT 1.25 MG/ML, 2ML IVPush PRN (07:30)
[2018-03-19 08:58] VITALS: BP 121/60
[2018-03-19] MEDS: ENOXAPARIN 40 MG/0.4 ML SQ SCH (09:58)
[2018-03-19] MEDS: ATORVASTATIN 80 MG TABLET PO SCH (09:59)
[2018-03-19] MEDS: AMIODARONE 200 MG TABLET PO SCH ×2 (09:59→22:18)
[2018-03-19] MEDS: FUROSEMIDE 20 MG TABLET PO SCH (09:59)
[2018-03-19] MEDS: GABAPENTIN 300 MG CAPSULE PO SCH ×3 (10:00→20:47)
[2018-03-19] MEDS: METOPROLOL TARTRATE 25 MG TABLET PO SCH ×2 (10:00→21:00)
[2018-03-19] MEDS: ALLOPURINOL 300 MG TABLET PO SCH (10:01)
[2018-03-19] MEDS: CHOLECALCIFEROL 1,000 UNIT TABLET PO SCH (10:01)
[2018-03-19] MEDS: CYANOCOBALOMIN 100MCG TABLET PO SCH (10:01)
[2018-03-19] MEDS: BENAZEPRIL 20 MG TABLET PO SCH (10:01)
[2018-03-19] MEDS: CLOPIDOGREL 75 MG TABLET PO SCH (10:01)
[2018-03-19 12:11] VITALS: BP 99/58
[2018-03-19 13:19] LABS: TROPONIN I 0.504 ng/mL (0.000-0.045)
[2018-03-19] MEDS: CEFTRIAXONE 1,000 MG in SODIUM CHLORIDE 0.9% 50 ML IV SCH (18:26)
[2018-03-19 19:19] VITALS: BP 91/42
[2018-03-19] MEDS ORDERED: SODIUM CHLORIDE 0.9%, 500ML IVBOLUS ONE (20:30)
[2018-03-19] MEDS: ASPIRIN 81 MG TABLET EC PO SCH (20:47)
[2018-03-19] MEDS: POTASSIUM CHLORIDE 20 MEQ in LACTATED RINGERS 1,000 ML IV SCH (22:20)
[2018-03-20 00:24] VITALS: BP 108/57
[2018-03-20 04:52] LABS: ANION GAP 7 mmol/L (5-15); BASOPHILS # (AUTO) 0.02 x10^3/uL (0-0.1); BASOPHILS % (AUTO) 0 % (0-1); CALCIUM 8.3 mg/dL (8.5-10.1); CHLORIDE 114 mmol/L (98-107); EOSINOPHILS # (AUTO) 0.06 x10^3/uL (0-0.4); EOSINOPHILS % (AUTO) 1 % (1-7); LYMPHOCYTES # (AUTO) 0.66 x10^3/uL (1-3.4); LYMPHOCYTES % (AUTO) 13 % (22-44); MD NO; MEAN CORPUSCULAR HEMOGLOBIN 33.3 pg (27.5-34.5); MEAN CORPUSCULAR HGB CONC 33.7 g/dL (33.2-36.2); MEAN CORPUSCULAR VOLUME 98.8 fL (81-97); MONOCYTES % (AUTO) 8 % (2-9); NEUTROPHILS # (AUTO) 3.84 x10^3/uL (1.8-6.8); NEUTROPHILS % (AUTO) 77 % (42-75); PLATELET COUNT 100 x10^3/uL (130-400); RED BLOOD COUNT 3.03 x10^6/uL (4.38-5.82); RED CELL DISTRIBUTION WIDTH 14.6 % (9.4-14.8)
[2018-03-20 04:53] LABS: CREATININE 1.08 mg/dL (0.7-1.3)
[2018-03-20] MEDS: CEFTRIAXONE 1,000 MG in SODIUM CHLORIDE 0.9% 50 ML IV SCH ×2 (06:36→18:04)
[2018-03-20 06:51] VITALS: BP 153/67
[2018-03-20] MEDS: POTASSIUM CHLORIDE 20 MEQ in LACTATED RINGERS 1,000 ML IV SCH (08:30)
[2018-03-20] MEDS: METOPROLOL TARTRATE 25 MG TABLET PO SCH ×2 (09:00→21:20)
[2018-03-20] MEDS: FUROSEMIDE 20 MG TABLET PO SCH (09:00)
[2018-03-20 09:07] LABS: TROPONIN I 0.535 ng/mL (0.000-0.045)
[2018-03-20] MEDS ORDERED: BENAZEPRIL 10 MG TABLET ONE (10:02)
[2018-03-20] MEDS: CLOPIDOGREL 75 MG TABLET PO SCH (10:12)
[2018-03-20] MEDS: CYANOCOBALOMIN 100MCG TABLET PO SCH (10:12)
[2018-03-20] MEDS: ATORVASTATIN 80 MG TABLET PO SCH (10:12)
[2018-03-20] MEDS: BENAZEPRIL 20 MG TABLET PO SCH (10:12)
[2018-03-20] MEDS: CHOLECALCIFEROL 1,000 UNIT TABLET PO SCH (10:12)
[2018-03-20] MEDS: ALLOPURINOL 300 MG TABLET PO SCH (10:12)
[2018-03-20] MEDS: AMIODARONE 200 MG TABLET PO SCH ×2 (10:12→21:19)
[2018-03-20] MEDS: GABAPENTIN 300 MG CAPSULE PO SCH ×3 (10:12→21:20)
[2018-03-20] MEDS: ENOXAPARIN 40 MG/0.4 ML SQ SCH (10:13)
[2018-03-20] MEDS ORDERED: REGADENOSON 0.4 MG/5 ML SYRINGE ONE (10:14)
[2018-03-20 12:35] VITALS: BP 148/62
[2018-03-20] MEDS: LACTATED RINGERS 1,000 ML IV SCH ×2 (13:15→23:49)
[2018-03-20 18:43] VITALS: BP 144/63
[2018-03-20] MEDS: ASPIRIN 81 MG TABLET EC PO SCH (21:20)
[2018-03-21 01:01] VITALS: BP 127/56
[2018-03-21] MEDS ORDERED: METOCLOPRAMIDE 10MG TABLET PO ONE (05:00)
[2018-03-21] MEDS ORDERED: ONDANSETRON ODT 4 MG PO ONE (05:00)
[2018-03-21] MEDS: CEFTRIAXONE 1,000 MG in SODIUM CHLORIDE 0.9% 50 ML IV SCH (05:01)
[2018-03-21 05:34] LABS: BASOPHILS # (AUTO) 0.02 x10^3/uL (0-0.1); BASOPHILS % (AUTO) 0 % (0-1); EOSINOPHILS # (AUTO) 0.08 x10^3/uL (0-0.4); EOSINOPHILS % (AUTO) 1 % (1-7); LYMPHOCYTES % (AUTO) 11 % (22-44); MD NO; MEAN CORPUSCULAR HEMOGLOBIN 33.8 pg (27.5-34.5); MEAN CORPUSCULAR HGB CONC 34.1 g/dL (33.2-36.2); MEAN CORPUSCULAR VOLUME 99.1 fL (81-97); MEAN PLATELET VOLUME 8.3 fL (7.4-10.4); MONOCYTES # (AUTO) 0.47 x10^3/uL (0.2-0.8); MONOCYTES % (AUTO) 7 % (2-9); NEUTROPHILS # (AUTO) 5.19 x10^3/uL (1.8-6.8); NEUTROPHILS % (AUTO) 80 % (42-75); PLATELET COUNT 126 x10^3/uL (130-400); RED BLOOD COUNT 3.21 x10^6/uL (4.38-5.82)
[2018-03-21 05:51] LABS: ANION GAP 8 mmol/L (5-15); CHLORIDE 110 mmol/L (98-107); CREATININE 0.89 mg/dL (0.7-1.3)
[2018-03-21 05:52] LABS: CALCIUM 8.6 mg/dL (8.5-10.1)
[2018-03-21 07:30] VITALS: BP 148/70
[2018-03-21] MEDS ORDERED: BENAZEPRIL 10 MG TABLET ONE (09:15)
[2018-03-21] MEDS: LACTATED RINGERS 1,000 ML IV SCH (09:28)
[2018-03-21] MEDS: GABAPENTIN 300 MG CAPSULE PO SCH (09:29)
[2018-03-21] MEDS: ALLOPURINOL 300 MG TABLET PO SCH (09:29)
[2018-03-21] MEDS: CYANOCOBALOMIN 100MCG TABLET PO SCH (09:29)
[2018-03-21] MEDS: CHOLECALCIFEROL 1,000 UNIT TABLET PO SCH (09:29)
[2018-03-21] MEDS: AMIODARONE 200 MG TABLET PO SCH (09:29)
[2018-03-21] MEDS: ATORVASTATIN 80 MG TABLET PO SCH (09:30)
[2018-03-21] MEDS: FUROSEMIDE 20 MG TABLET PO SCH (09:30)
[2018-03-21] MEDS: BENAZEPRIL 20 MG TABLET PO SCH (09:30)
[2018-03-21] MEDS: METOPROLOL TARTRATE 25 MG TABLET PO SCH (09:30)
[2018-03-21] MEDS: CLOPIDOGREL 75 MG TABLET PO SCH (09:31)
[2018-03-21 13:05] VITALS: BP 162/72
[2018-03-21] MEDS ORDERED: AMOXICILLIN 500 MG CAPSULE PO SCH (16:00)
[2018-03-22] MEDS ORDERED: SULFAMETH./TRIMETHOPRIM DS 800MG/160MG TABLET PO SCH (09:00)
== END 2018-03-21 13:50 | disposition home health service (06) | DRG 871 ==
LOC: ED 06:38 → EDIP 07:30 → 5SO 08:57 → DCLOUNGE 03-21 13:40
PROVIDERS: ADMIT Family Medicine; ATTEND Family Medicine
DX: A41.9 Sepsis, unspecified organism (principal); N17.0 Acute kidney failure with tubular necrosis; N39.0 Urinary tract infection, site not specified; E46 Unspecified protein-calorie malnutrition; E86.0 Dehydration; Z68.26 Body mass index [BMI] 26.0-26.9, adult; G62.9 Polyneuropathy, unspecified; I10 Essential (primary) hypertension; I25.10 Atherosclerotic heart disease of native coronary artery without angina pectoris; I44.7 Left bundle-branch block, unspecified; I48.91 Unspecified atrial fibrillation; Z82.49 Family history of ischemic heart disease and other diseases of the circulatory system; M10.9 Gout, unspecified; Z96.649 Presence of unspecified artificial hip joint; Z96.659 Presence of unspecified artificial knee joint; Z80.8 Family history of malignant neoplasm of other organs or systems; I25.2 Old myocardial infarction; Z87.891 Personal history of nicotine dependence; Z95.1 Presence of aortocoronary bypass graft; Z83.3 Family history of diabetes mellitus; R33.9 Retention of urine, unspecified
CPT/HCPCS: 36415; 71045; 78452; 80048; 80053; 81001; 83605; 84145; 84484; 85025; 87040; 87077; 87086; 87186; 93005; 93017; 96361; 96365; 99285; G0378; J0696; J1650; J2785; J3480; A9502; C9898; J7030; J7040; J7120

== ENCOUNTER → 2020-05-14 | Outpatient (CLI) | payer MEDICARE ==
[~2020-05-14] MED LIST changes: +AMLO-211; -AMLO10TA6; -BENA10TA4 PO; +BENA10TA59 PO; -BENA20TA4 PO; +BENA20TA54 PO; +METO25TA35 PO; -NABU750T; +NABU750T7; +SENN-177 PO; -SENN1TAB8 PO
== END | disposition home or self-care (01) ==
LOC: CVU 12:16
PROVIDERS: ATTEND Internal Medicine Cardiovascular Disease
DX: I08.0 Rheumatic disorders of both mitral and aortic valves (principal); I65.21 Occlusion and stenosis of right carotid artery; I10 Essential (primary) hypertension
CPT/HCPCS: 93306; 93880